=== PATIENT | female | born 1965 ===

== ENCOUNTER 2016-12-16 21:01 | Emergency (ER) | payer MEDICAID ==
[2016-12-16 21:12] VITALS: RESP 18
--- NOTE | 2016-12-16 21:18 | C.PDOC ---
History Of Present Illness Patient presents to the ER with a complaint of sudden left flank pain that radiate to the left groin. Denies fever, chills, nausea, or vomiting. Time Seen by Provider: 12/16/16 21:18 Chief Complaint (Nursing): Female Genitourinary History Per: Patient History/Exam Limitations: no limitations Onset/Duration Of Symptoms: Hrs Severity: Severe Pain Scale Rating Of: 7 Location Of Pain/Discomfort: Other (Left flank) Radiation Of Pain To:: Other (Groin) Quality Of Discomfort: Unable To Describe Associated Symptoms: denies: Fever, Chills, Nausea, Vomiting Exacerbating Factors: None Alleviating Factors: None Recent travel outside of the [place]: No Abnormal Vaginal Bleeding: No Past Medical History Reviewed: Historical Data, Nursing Documentation, Vital Signs Vital Signs: Last Vital Signs Temp 98.9 F 12/16/16 21:09 Pulse 82 12/16/16 21:09 Resp 18 12/16/16 21:09 BP 190/99 H 12/16/16 21:15 Pulse Ox 98 12/16/16 21:27 - Medical History PMH: Asthma, HTN Surgical History: No Surg Hx - [facility] Procedures NEBULIZER THERAPY (02/15/14) Family History: States: No Known Family Hx - Social History Hx Alcohol Use: No Hx Substance Use: No Review Of Systems Constitutional: Negative for: Fever, Chills Gastrointestinal: Negative for: Nausea, Vomiting Musculoskeletal: Positive for: Back Pain Physical Exam - Physical Exam Appears: Non-toxic Skin: Warm, Dry Oral Mucosa: Moist Chest: Symmetrical, No Tenderness Cardiovascular: Rhythm Regular, No Murmur Respiratory: No Rales, No Rhonchi, No Wheezing Gastrointestinal/Abdominal: Soft, No Tenderness Back: Paraspinal Tenderness (Left flank) Neurological/Psych: Oriented x3 ED Course And Treatment - Laboratory Results Result Diagrams: 12/16/16 21:38 12/16/16 21:38 O2 Sat by Pulse Oximetry: 98 (Room air) Pulse Ox Interpretation: Normal Progress Note: Blood work and urinalysis ordered. Pepcid, toradol, zofran, morphine, and IV fluids administered. Reevaluation Time: 00:03 Reassessment Condition: Improved Medical Decision Making Medical Decision Making: Upon provider reevaluation patient is feeling better, is medically stable, and requires no further treatment in the ED at this time. Patient will be discharged home with Rx for flomax, macrobid, toradol . Counseling was provided and all questions were answered regarding diagnosis and need for follow up with the referred clinic. There is agreement to discharge plan. Return if symptoms persist or worsen. Disposition Counseled Patient/Family Regarding: Studies Performed, Diagnosis, Need For Followup, Rx Given - Disposition Referrals: Felix Jeffers MD [Primary Care Provider] - Antoinette Mock MD [Staff Provider] - Disposition: HOME/ ROUTINE Disposition Time: 21:18 Condition: FAIR Additional Instructions: please return if symptoms recur Prescriptions: Ketorolac Tromethamine [Toradol] 10 mg PO TID PRN #15 tab PRN Reason: Pain, Moderate (4-7) Nitrofurantoin Macrocrystals [Macrobid] 1 cap PO BID #14 cap Tamsulosin [Flomax] 0.4 mg PO DAILY #14 cap Instructions: Renal Colic (ED), Kidney Stones (DC), Urinary Tract Infection in Women (DC) Forms: [employer] (Latvian) Print Language: HEBREW - Clinical Impression Clinical Impression: Renal colic on left side, Kidney stone on left side, Hydroureteronephrosis, UTI (urinary tract infection) - Scribe Statement The provider has reviewed the documentation as recorded by the Scribruma Nuno All medical record entries made by the Scribe were at my direction and personally dictated by me. I have reviewed the chart and agree that the record accurately reflects my personal performance of the history, physical exam, medical decision making, and the department course for this patient. I have also personally directed, reviewed, and agree with the discharge instructions and disposition.
[2016-12-16] MEDS ORDERED: Sodium Chloride 0.9% 2,000 ML IV ONE (21:19)
[2016-12-16] MEDS ORDERED: Sodium Chloride 0.9% 1,000 ML ONE (21:27)
[2016-12-16] MEDS ORDERED: Morphine 4 MG/ML VIAL ONE (21:27)
[2016-12-16 21:48] LABS: BASO # 0.1 K/uL (0.0-0.2); BASO % 0.8 % (0.0-2.0); EOS # 0.2 K/uL (0.0-0.7); EOS % 3.3 % (0.0-4.0); HEMOGLOBIN 13.3 g/dL (11.0-16.0); LYMPH # 1.9 K/uL (1.0-4.3); LYMPH % 29.4 % (20.0-40.0); MEAN CELL VOLUME 91.7 fL (81.0-99.0); MEAN CORPUSCULAR HEMOGLOBIN 30.8 pg (27.0-31.0); MEAN CORPUSCULAR HGB CONC 33.6 g/dL (33.0-37.0); MONO # 0.6 K/uL (0.0-0.8); MONO % 8.7 % (0.0-10.0); NEUT # 3.7 K/uL (1.8-7.0); NEUT % 57.8 % (50.0-75.0); RBC 4.32 Mil/uL (3.80-5.20); WHITE BLOOD COUNT 6.5 K/uL (4.8-10.8)
[2016-12-16 21:55] LABS: ALBUMIN 4.1 g/dL (3.5-5.0)
[2016-12-16 21:58] LABS: ALB/GLOB RATIO 1.2 (1.0-2.1)
[2016-12-16 21:59] LABS: CALCIUM 9.1 mg/dl (8.6-10.4)
[2016-12-16 22:13] LABS: SQUAMOUS EPITHIAL 7 /hpf (0-5); URINE BACTERIA OCC (<OCC); URINE BILIRUBIN NEGATIVE (NEGATIVE); URINE BLOOD 3+ (NEGATIVE); URINE CLARITY Hazy (Clear); URINE COLOR Yellow (YELLOW); URINE GLUCOSE (UA) NORMAL (Normal); URINE LEUKOCYTE ESTERASE TRACE Leu/uL (Negative); URINE NITRATE NEGATIVE (NEGATIVE); URINE PROTEIN 1+ mg/dL (NEGATIVE); URINE UROBILINOGEN NORMAL mg/dL (0.2-1.0)
[2016-12-16 22:14] LABS: HCG,QUALITATIVE URINE NEGATIVE (NEGATIVE)
[2016-12-16] MEDS ORDERED: cefTRIAXone IV 1 gm in Dextros 50 ML IVPB ONE (22:27)
--- NOTE | 2016-12-16 23:10 | CT ---
EXAM: CT Abdomen and Pelvis Without Intravenous Contrast CLINICAL HISTORY: 51 years old, female; Pain; Abdominal pain; Flank; Left lower quadrant (llq); Additional info: Left flank pain, HX of kidney stone TECHNIQUE: Axial computed tomography images of the abdomen and pelvis without intravenous contrast. This CT exam was performed using one or more of the following dose reduction techniques: automated exposure control, adjustment of the mA and/or kV according to patient size, and/or use of iterative reconstruction technique. Coronal and sagittal reformatted images were created and reviewed. COMPARISON: No relevant prior studies available. FINDINGS: Lower thorax: Minimal atelectasis/scarring. ABDOMEN: Liver: Unremarkable. Gallbladder and bile ducts: Cholecystectomy. No ductal dilation. Pancreas: Unremarkable. No ductal dilation. Spleen: No splenomegaly. Adrenals: No mass. Kidneys and ureters: Moderate scarring/atrophy of RIGHT kidney. Several small renal calculi. Mild pelvocaliectasis of LEFT kidney. Two calculi at/near LEFT ureterovesical junction, larger measuring 0.5 x 0.2 x 0.2 cm. Stomach and bowel: No definite mural thickening. No obstruction. Appendix: No findings to suggest acute appendicitis. PELVIS: Bladder: Unremarkable. No stones. Reproductive: Unremarkable as visualized. ABDOMEN and PELVIS: Intraperitoneal space: No significant fluid collection. No free air. Bones/joints: Degenerative changes of spine. No acute fracture. Soft tissues: Tiny umbilical hernia containing fat. Vasculature: Unremarkable. No aneurysm. Lymph nodes: No pathologically enlarged lymph nodes. IMPRESSION: 1. LEFT distal ureteral calculi with mild hydroureteronephrosis. 2. Incidental/non-acute findings are described above.
[2016-12-17 00:03] VITALS: BP 125/77; PULSE 69; TEMP 97.7
[2016-12-17 00:06] VITALS: O2SAT 98
== END 2016-12-17 00:14 | disposition home or self-care (01) ==
LOC: SUPCPDRO 21:01 → C.ER 21:01
DX: N13.2 Hydronephrosis with renal and ureteral calculous obstruction (principal); N39.0 Urinary tract infection, site not specified
CPT/HCPCS: 74176; 80053; 81001; 83690; 84703; 85025; 96365; 96375; 99284; J0696; J1885; J2270; J2405; J7040

== ENCOUNTER 2017-01-13 21:12 | Inpatient (IN) | payer MEDICAID ==
[2017-01-13] MEDS ORDERED: Sodium Chloride 0.9% 1,000 ML IV ONE (21:33)
[2017-01-13 21:50] LABS: RBC URINE 7 /hpf (0-3); TRANSITIONAL EPITHIAL < 1 /hpf (0-3); URINE BACTERIA RARE (<OCC); URINE BILIRUBIN NEGATIVE (NEGATIVE); URINE BLOOD 1+ (NEGATIVE); URINE COLOR Yellow (YELLOW); URINE GLUCOSE (UA) NORMAL (Normal); URINE KETONE 1+ mg/dL (NEGATIVE); URINE LEUKOCYTE ESTERASE NEG Leu/uL (Negative); URINE PROTEIN 1+ mg/dL (NEGATIVE); URINE UROBILINOGEN NORMAL mg/dL (0.2-1.0); WBC URINE 2 /hpf (0-5)
[2017-01-13] MEDS ORDERED: Sodium Chloride 0.9% 1,000 ML ONE (21:52)
[2017-01-13] MEDS ORDERED: Morphine 4 MG/ML VIAL ONE (21:52)
[2017-01-13 21:53] LABS: BASO % 0.1 % (0.0-2.0); EOS % 0.1 % (0.0-4.0); HEMATOCRIT 40.9 % (34.0-47.0); LYMPH # 0.7 K/uL (1.0-4.3); LYMPH % 4.2 % (20.0-40.0); MEAN CELL VOLUME 90.8 fL (81.0-99.0); MEAN CORPUSCULAR HEMOGLOBIN 30.6 pg (27.0-31.0); MEAN CORPUSCULAR HGB CONC 33.8 g/dL (33.0-37.0); MEAN PLATELET VOLUME 8.9 fL (7.2-11.7); MONO # 1.1 K/uL (0.0-0.8); MONO % 6.9 % (0.0-10.0); PLATELET COUNT 156 K/uL (130-400); RED CELL DISTRIBUTION WIDTH 13.3 % (11.5-14.5); WHITE BLOOD COUNT 15.8 K/uL (4.8-10.8)
[2017-01-13 22:05] LABS: CHLORIDE 105 mmol/L (98-107); POTASSIUM 4.1 mmol/L (3.6-5.2); SODIUM 137 mmol/L (132-148)
[2017-01-13 22:07] LABS: GFR AFRICAN-AMERICAN > 60
[2017-01-13 22:08] LABS: ALB/GLOB RATIO 1.2 (1.0-2.1); ALKALINE PHOSPHATASE 92 U/L (38-126); ALT/SGPT 53 U/L (9-52); AST/SGOT 35 U/L (14-36); BILIRUBIN,TOTAL 1.7 mg/dL (0.2-1.3); BLOOD UREA NITROGEN 11 mg/dL (7-17); CALCIUM 9.3 mg/dl (8.6-10.4); CARBON DIOXIDE 22 mmol/L (22-30); GLUCOSE,RANDOM 135 mg/dL (65-105); TOTAL PROTEIN 7.7 g/dL (6.3-8.3)
[2017-01-13 22:58] LABS: NEUTROPHIL 88 % (50-75); TOTAL CELLS COUNTED 100
[2017-01-13] MEDS ORDERED: Iodixanol 320 MG/ML 100 ML BOTTLE IV ONE (23:14)
--- NOTE | 2017-01-13 23:19 | C.PDOC ---
History Of Present Illness 51 year old female who presents to the ER with a complaint of worsening periumbilical pain for the past 2 days. Denies nausea, vomiting, fever, or chills. Time Seen by Provider: 01/13/17 21:30 Chief Complaint (Nursing): Abdominal Pain History Per: Patient History/Exam Limitations: no limitations Onset/Duration Of Symptoms: Days Current Symptoms Are (Timing): Still Present Location Of Pain/Discomfort: Periumbilical Radiation Of Pain To:: None Quality Of Discomfort: Unable To Describe Associated Symptoms: denies: Fever, Chills, Nausea, Vomiting Exacerbating Factors: None Alleviating Factors: None Recent travel outside of the [place]: No Abnormal Vaginal Bleeding: No Past Medical History Reviewed: Historical Data, Nursing Documentation, Vital Signs Vital Signs: Last Vital Signs Temp 99.0 F 01/13/17 21:18 Pulse 86 01/13/17 21:18 Resp 16 01/13/17 21:18 BP 118/71 01/13/17 21:18 Pulse Ox 98 01/14/17 00:14 - Medical History PMH: Asthma, HTN Surgical History: Cholecystectomy - [facility] Procedures NEBULIZER THERAPY (02/15/14) Family History: States: Unknown Family Hx - Social History Hx Alcohol Use: No Hx Substance Use: No - Immunization History Hx Tetanus Toxoid Vaccination: No Hx Influenza Vaccination: Yes Hx Pneumococcal Vaccination: No Review Of Systems Constitutional: Negative for: Fever, Chills Gastrointestinal: Positive for: Abdominal Pain. Negative for: Nausea, Vomiting Genitourinary: Negative for: Dysuria, Hematuria Physical Exam - Physical Exam Appears: Non-toxic Skin: Normal Color, Warm, Dry Head: Atraumatic, Normacephalic Oral Mucosa: Moist Chest: Symmetrical, No Tenderness Cardiovascular: Rhythm Regular, No Murmur Respiratory: Normal Breath Sounds, No Rales, No Rhonchi, No Wheezing Gastrointestinal/Abdominal: Soft, Tenderness (Periumbilical), Other (Positive mcburney's sign) Neurological/Psych: Oriented x3, Normal Speech, Normal Cognition ED Course And Treatment - Laboratory Results Result Diagrams: 01/13/17 21:49 01/13/17 21:49 Lab Interpretation: Abnormal ECG: Interpreted By Nm ECG Rhythm: Sinus Rhythm ECG Interpretation: Normal Rate From EC O2 Sat by Pulse Oximetry: 98 Pulse Ox Interpretation: Normal - Radiology CXR: Interpreted by Me CXR Interpretation: Yes: No Acute Disease - Other Rad abd x 2 X-Ray: Interpreted by Me (normal stool/gas) - CT Scan/US CT Abd/Pelvis Other Rad Studies (CT/US): Radiology Report Reviewed (+ acute Appendicitis) Progress Note: EKG, CT abd/pel, and abdominal x-ray ordered. Toradol, morphine, zosyn, and IV fluids administered. Reevaluation Time: 00:06 Reassessment Condition: Improved - Physician Consult Information Outcome Of Conversation: 0000: d/w Dr. Richardson- Surgery Help Desk Manager- ok to admit. discussed with Surg Kevan Disposition Doctor Will See Patient In The: Hospital Counseled Patient/Family Regarding: Studies Performed, Diagnosis - Disposition Disposition: HOSPITALIZED Disposition Time: 00:06 Condition: GOOD Forms: [facility] (Khmer) - Clinical Impression Clinical Impression: Appendicitis, acute - Scribe Statement The provider has reviewed the documentation as recorded by the Scribruma Nuno All medical record entries made by the Scribe were at my direction and personally dictated by me. I have reviewed the chart and agree that the record accurately reflects my personal performance of the history, physical exam, medical decision making, and the department course for this patient. I have also personally directed, reviewed, and agree with the discharge instructions and disposition.
--- NOTE | 2017-01-13 23:52 | CT ---
EXAM: CT Abdomen and Pelvis With Intravenous Contrast CLINICAL HISTORY: 51 years old, female; Pain; Abdominal pain; Periumbilical; Patient HX: Pelvic pain also; Additional info: Periumbilical pain, h/o renal colic, + leukocytosi TECHNIQUE: Axial computed tomography images of the abdomen and pelvis with intravenous contrast. All CT scans at this facility use one or more dose reduction techniques, viz.: automated exposure control; ma/kV adjustment per patient size (including targeted exams where dose is matched to indication; i.e. head); or iterative reconstruction technique. Coronal and sagittal reformatted images were created and reviewed. CONTRAST: 100 mL of visipaque administered intravenously. COMPARISON: CT - ABD PELVIS W/O PO OR IV CONT 12/16/2016 10:33:50 PM FINDINGS: Lower thorax: Minimal atelectasis/scarring. ABDOMEN: Liver: Unremarkable. No mass. Gallbladder and bile ducts: Cholecystectomy. No ductal dilation. Pancreas: No ductal dilation. No mass. Spleen: No splenomegaly. Adrenals: No mass. Kidneys and ureters: Moderate scarring/atrophy of RIGHT kidney. Several small renal calculi. No hydronephrosis. Stomach and bowel: No definite mural thickening. No obstruction. Appendix: Enlarged appendix, measuring up to 1.3 cm in diameter. Mild stranding about appendix. Appendicolith. PELVIS: Bladder: Unremarkable. Reproductive: Unremarkable as visualized. ABDOMEN and PELVIS: Intraperitoneal space: Trace free fluid within lower abdomen. No free air. Bones/joints: Degenerative changes of spine. No acute fracture. Soft tissues: Tiny umbilical hernia containing fat. Tiny RIGHT inguinal hernia containing fat. Vasculature: Unremarkable. No aneurysm. Lymph nodes: No pathologically enlarged lymph nodes. IMPRESSION: 1. Acute appendicitis. 2. Incidental/non-acute findings are described above.
[2017-01-13] MEDS ORDERED: Piperacillin/Tazobact 3.375 gm 100 ML IV STA (23:58)
[2017-01-13] MEDS ORDERED: Morphine 4 MG/ML VIAL IV STA (23:59)
[2017-01-14] MEDS ORDERED: Morphine 4 MG/ML VIAL ONE (00:02)
[2017-01-14] MEDS ORDERED: HYDROmorphone 0.5 mg/0.5 ml ISec IVP PRN ×2 (00:57→10:00)
[2017-01-14] MEDS ORDERED: Sodium Chloride 0.9% 1,000 ML IV SCH (01:00)
--- NOTE | 2017-01-14 01:35 | CP.PCM.HP ---
History of Present Illness - History of Present Illness History of Present Illness: H&P- Dr. Richardson CC: Abdominal Pain 51F pmhx of HTN and depression started having worsening sharp periumbilical pain now in the RLQ that started 2 days ago. Pain is now localized the the RLQ. Associated nausea, NBNB vomiting, and non-bloody diarrhea. Pt also states subjective fevers and chills. Denies current chest pain, SOB, numbness or tingling in the extremities. No episodes of similar pain previously PMH: Asthma, HTN, Depression PSH: none ALL: NKDA SocialHx: Former smoker Present on Admission - Present on Admission Any Indicators Present on Admission: No Review of Systems - Review of Systems All systems: reviewed and no additional remarkable complaints except Review of Systems: as noted above Past Patient History - Infectious Disease Hx of Infectious Diseases: None - Tetanus Immunizations Tetanus Immunization: Unknown - Past Medical History & Family History Past Medical History?: Yes - Past Social History Smoking Status: Former Smoker - CARDIAC Hx Hypertension: Yes - PULMONARY Hx Asthma: Yes - NEUROLOGICAL Hx Seizures: No - HEMATOLOGICAL/ONCOLOGICAL Hx Human Immunodeficiency Virus (HIV): No - GENITOURINARY/GYNECOLOGICAL Hx Sexually Transmitted Disorders: No - PSYCHIATRIC Hx Substance Use: No - SURGICAL HISTORY Hx Cholecystectomy: Yes - ANESTHESIA Hx Anesthesia: Yes Hx Anesthesia Reactions: No Meds Allergies/Adverse Reactions: Allergies Allergy/AdvReac Type Severity Reaction Status Date / Time chocolate flavor Allergy RASH Verified 01/13/17 21:21 Physical Exam - Constitutional Appears: No Acute Distress - Head Exam Head Exam: ATRAUMATIC - Eye Exam Eye Exam: EOMI - ENT Exam ENT Exam: Mucous Membranes Moist - Respiratory Exam Respiratory Exam: NORMAL BREATHING PATTERN. absent: Accessory Muscle Use, Rales , Rhonchi - Cardiovascular Exam Cardiovascular Exam: REGULAR RHYTHM, +S1, +S2 - GI/Abdominal Exam GI & Abdominal Exam: Guarding, Normal Bowel Sounds, Soft, Tenderness. absent: Firm, Mass Additional comments: TTP- +rovsings +mcburney +obturator sign - Extremities Exam Additional comments: +2 pulses DP B/L - Neurological Exam Neurological exam: Alert, Oriented x3 - Psychiatric Exam Psychiatric exam: Normal Affect - Skin Skin Exam: Intact, Normal Color Results - Vital Signs Recent Vital Signs: Last Vital Signs Temp 98.5 F 01/14/17 01:22 Pulse 76 01/14/17 01:22 Resp 20 01/14/17 01:22 BP 146/83 01/14/17 01:22 Pulse Ox 97 01/14/17 01:22 - Labs Result Diagrams: 01/13/17 21:49 01/13/17 21:49 Assessment & Plan - Assessment and Plan (Free Text) Assessment: 51F RLQ abdominal pain Plan: - NPO - IVF/Abx - GI/DVT Ppx - Repeat AM labs - pain control - schedule for OR- Lap Appy - further recs per Dr. Dylan Henderson PGY1
[2017-01-14] MEDS: Piperacill/Tazo 3.375gm in Dex 3.375 GM/50 ML BAG IVPB SCH ×4 (05:53→23:36)
[2017-01-14 06:29] LABS: BASO % 0.1 % (0.0-2.0); HEMATOCRIT 38.1 % (34.0-47.0); LYMPH # 0.9 K/uL (1.0-4.3); LYMPH % 5.4 % (20.0-40.0); MEAN CELL VOLUME 91.4 fL (81.0-99.0); MEAN CORPUSCULAR HGB CONC 32.9 g/dL (33.0-37.0); MEAN PLATELET VOLUME 8.9 fL (7.2-11.7); MONO # 1.2 K/uL (0.0-0.8); MONO % 6.8 % (0.0-10.0); PLATELET COUNT 151 K/uL (130-400); RED CELL DISTRIBUTION WIDTH 13.3 % (11.5-14.5)
[2017-01-14 06:56] LABS: BLOOD UREA NITROGEN 10 mg/dL (7-17); CALCIUM 8.9 mg/dl (8.6-10.4); CARBON DIOXIDE 25 mmol/L (22-30); CHLORIDE 103 mmol/L (98-107); GFR AFRICAN-AMERICAN > 60; GLUCOSE,RANDOM 117 mg/dL (65-105); POTASSIUM 4.1 mmol/L (3.6-5.2); SODIUM 138 mmol/L (132-148)
[2017-01-14] MEDS ORDERED: Lactated Ringer's 1,000 ML IV ONE ×2 (08:16)
[2017-01-14] MEDS ORDERED: Propofol 10 mg/ml Inj (20 ML) ONE (08:47)
[2017-01-14] MEDS ORDERED: Neostigmine Methylsulfate 3mg/3ml Syringe IV ONE (09:21)
[2017-01-14] MEDS ORDERED: Oxycodone/Acetaminophen 5/325 mg Tab PO PRN (10:03)
--- NOTE | 2017-01-14 10:07 | PCM.SURG1 ---
Surgeon's Initial Post Op Note - Surgeon's Notes Surgeon: Dr. Richardson Blade Groover: PGY1, [facility] OMS4 Pre-Operative Diagnosis: Acute Appendicitis Operative Findings: see op note Post-Operative Diagnosis: Same Operation Performed: Laparoscopic Appendectomy Specimen/Specimens Removed: inflammed appendix Estimated Blood Loss: EBL {In ML}: 10 Drains Used: No Drains Post-Op Condition: Good Date of Surgery/Procedure: 01/14/17 Time of Surgery/Procedure: 09:00
[2017-01-14] MEDS ORDERED: Sodium Chloride 0.9% 250 ML IV ONE ×2 (11:05→11:30)
--- NOTE | 2017-01-14 11:39 | RAD ---
PROCEDURE: Radiographs of the chest and abdomen (obstructive series) HISTORY: abd pain COMPARISON: No prior. TECHNIQUE: AP radiograph of the chest, with upright and supine radiographs of the abdomen. FINDINGS: CHEST: Lungs: Clear. Cardiovascular: Normal size heart. No pulmonary vascular congestion. Pleura: No pleural fluid. No pneumothorax. Other findings: None. ABDOMEN AND PELVIS: Bowel: Unremarkable bowel gas pattern. No evidence of mechanical obstruction. Free air: None. Bones: Unremarkable. Other findings: Surgical clips in the right upper quadrant abdomen suggesting prior cholecystectomy. Clinically correlate. IMPRESSION: Unremarkable radiographs of chest and abdomen. No evidence of mechanical bowel obstruction. Prior cholecystectomy suggested. Clinically correlate further.
[2017-01-14 11:54] LABS: NEUTROPHIL 80 % (50-75); TOTAL CELLS COUNTED 100
[2017-01-14 14:52] VITALS: RESP 20
[2017-01-14] MEDS: Sodium Chloride 0.9% 1,000 ML IV SCH ×2 (18:35→20:50)
--- NOTE | 2017-01-14 21:35 | OP ---
PROCEDURE DATE: 01/14/2017 PREOPERATIVE DIAGNOSIS: Acute appendicitis. POSTOPERATIVE DIAGNOSIS: Acute appendicitis. PROCEDURE: Laparoscopic appendectomy. SURGEON: Dr. Richardson. SKILLS INSTRUCTOR: Dr. Henderson. ANESTHESIA: General. ANESTHESIOLOGIST: Dr. Dr. Lopes. DESCRIPTION OF OPERATION: With the patient in the supine position under adequate general anesthesia, the abdomen was prepped and draped in the usual sterile manner. Veress needle puncture was performed at the umbilicus with insufflation to 15 cm of water pressure CO2 and a 10 mm laparoscopic trocar was inserted via an infraumbilical incision. Under direct vision, 5 and 12 mm trocars were inserted in the left lower quadrant. The appendix was identified was identified as an inflammatory mass adherent to the anterior aspect of the abdominal wall in the right lower quadrant. The mass was taken down to reveal an acutely inflamed appendix with overlying omental and epiploic fat. The distal portion of the appendix was markedly inflamed and dilated with some purulent exudate. The base of the appendix was relatively normal in appearance. The mesoappendix was dissected and thoroughly divided with the hemoclip and an Endo DANICA stapler was then used to amputate the appendix close to the cecum. The stump was examined for hemostasis. The appendix was placed in a specimen retrieval bag and removed via the 12 mm port site. There was a large appendicle is palpable within the appendix. The right lower quadrant was irrigated and suctioned. The pneumoperitoneum was released and the trocars were removed. The umbilical and 12 mm port sites were closed with figure-of-8 fascial sutures of 0-Vicryl. All incisions were closed with 4-0 Monocryl subcuticular sutures and Steri-Strips. Dry sterile dressings were applied. The patient tolerated the procedure well and transferred to the recovery room in stable condition. ESTIMATED BLOOD LOSS: From the procedure was 20 mL. Ana Paula Richardson MD
[2017-01-15] MEDS: Piperacill/Tazo 3.375gm in Dex 3.375 GM/50 ML BAG IVPB SCH ×2 (05:24→11:54)
[2017-01-15] MEDS ORDERED: Benzocaine/Menthol (Cepacol) Lozenge MT PRN (05:30)
[2017-01-15] MEDS: Sodium Chloride 0.9% 1,000 ML IV SCH (05:41)
[2017-01-15 08:28] LABS: BASO % 0.6 % (0.0-2.0); EOS # 0.2 K/uL (0.0-0.7); EOS % 2.8 % (0.0-4.0); HEMATOCRIT 33.6 % (34.0-47.0); LYMPH # 1.4 K/uL (1.0-4.3); LYMPH % 16.2 % (20.0-40.0); MEAN CELL VOLUME 92.2 fL (81.0-99.0); MEAN CORPUSCULAR HEMOGLOBIN 30.6 pg (27.0-31.0); MEAN CORPUSCULAR HGB CONC 33.3 g/dL (33.0-37.0); MEAN PLATELET VOLUME 8.9 fL (7.2-11.7); MONO # 0.5 K/uL (0.0-0.8); MONO % 5.2 % (0.0-10.0); RED CELL DISTRIBUTION WIDTH 13.6 % (11.5-14.5); WHITE BLOOD COUNT 8.7 K/uL (4.8-10.8)
[2017-01-15 08:37] VITALS: BP 120/79; PULSE 60; TEMP 98.1; O2SAT 96
[2017-01-15 08:54] LABS: ALKALINE PHOSPHATASE 62 U/L (38-126); ALT/SGPT 37 U/L (9-52); AST/SGOT 19 U/L (14-36); BILIRUBIN,TOTAL 1.6 mg/dL (0.2-1.3); BLOOD UREA NITROGEN 10 mg/dL (7-17); CALCIUM 8.6 mg/dl (8.6-10.4); CARBON DIOXIDE 25 mmol/L (22-30); CHLORIDE 105 mmol/L (98-107); GFR AFRICAN-AMERICAN > 60; GLUCOSE,RANDOM 90 mg/dL (65-105); POTASSIUM 3.8 mmol/L (3.6-5.2); SODIUM 139 mmol/L (132-148); TOTAL PROTEIN 5.7 g/dL (6.3-8.3)
--- NOTE | 2017-01-15 11:11 | CP.PCM.DIS ---
Provider - Provider Date of Admission: 01/14/17 00:04 Attending physician: Ana Paula Richardson MD Time Spent in preparation of Discharge (in minutes): 5 Hospital Course - Lab Results Lab Results: Most Recent Lab Values WBC 8.7 K/uL (4.8-10.8) 01/15/17 08:21 RBC 3.65 Mil/uL (3.80-5.20) L 01/15/17 08:21 Hgb 11.2 g/dL (11.0-16.0) 01/15/17 08:21 Hct 33.6 % (34.0-47.0) L 01/15/17 08:21 MCV 92.2 fL (81.0-99.0) 01/15/17 08:21 MCH 30.6 pg (27.0-31.0) 01/15/17 08:21 MCHC 33.3 g/dL (33.0-37.0) 01/15/17 08:21 RDW 13.6 % (11.5-14.5) 01/15/17 08:21 Plt Count 143 K/uL (130-400) 01/15/17 08:21 MPV 8.9 fL (7.2-11.7) 01/15/17 08:21 Neut % (Auto) 75.2 % (50.0-75.0) H 01/15/17 08:21 Lymph % (Auto) 16.2 % (20.0-40.0) L 01/15/17 08:21 Evans % (Auto) 5.2 % (0.0-10.0) 01/15/17 08:21 Eos % (Auto) 2.8 % (0.0-4.0) 01/15/17 08:21 Baso % (Auto) 0.6 % (0.0-2.0) 01/15/17 08:21 Neut # 6.6 K/uL (1.8-7.0) 01/15/17 08:21 Lymph # 1.4 K/uL (1.0-4.3) 01/15/17 08:21 Evans # 0.5 K/uL (0.0-0.8) 01/15/17 08:21 Eos # 0.2 K/uL (0.0-0.7) 01/15/17 08:21 Baso # 0.0 K/uL (0.0-0.2) 01/15/17 08:21 Neutrophils % (Manual) 80 % (50-75) H 01/14/17 06:22 Band Neutrophils % 5 % (0-2) H 01/14/17 06:22 Lymphocytes % (Manual) 9 % (20-40) L 01/14/17 06:22 Monocytes % (Manual) 6 % (0-10) 01/14/17 06:22 Platelet Estimate Normal (NORMAL) 01/14/17 06:22 RBC Morphology Normal 01/14/17 06:22 Sodium 139 mmol/L (132-148) 01/15/17 08:21 Potassium 3.8 mmol/L (3.6-5.2) 01/15/17 08:21 Chloride 105 mmol/L (98-107) 01/15/17 08:21 Carbon Dioxide 25 mmol/L (22-30) 01/15/17 08:21 Anion Gap 13 (10-20) 01/15/17 08:21 BUN 10 mg/dL (7-17) 01/15/17 08:21 Creatinine 0.8 MG/DL (0.7-1.2) 01/15/17 08:21 Est GFR ( Amer) > 60 01/15/17 08:21 Est GFR (Non-Af Amer) > 60 01/15/17 08:21 Random Glucose 90 mg/dL (65-105) 01/15/17 08:21 Calcium 8.6 mg/dl (8.6-10.4) 01/15/17 08:21 Total Bilirubin 1.6 mg/dL (0.2-1.3) H 01/15/17 08:21 AST 19 U/L (14-36) 01/15/17 08:21 ALT 37 U/L (9-52) 01/15/17 08:21 Alkaline Phosphatase 62 U/L (38-126) 01/15/17 08:21 Total Protein 5.7 g/dL (6.3-8.3) L 01/15/17 08:21 Albumin 2.9 g/dL (3.5-5.0) L D 01/15/17 08:21 Globulin 2.9 gm/dL (2.2-3.9) 01/15/17 08:21 Albumin/Globulin Ratio 1.0 (1.0-2.1) 01/15/17 08:21 Lipase 37 U/L (23-300) 01/13/17 21:49 Urine Color Yellow (YELLOW) 01/13/17 21:33 Urine Clarity Hazy (Clear) 01/13/17 21:33 Urine pH 5.0 (5.0-8.0) 01/13/17 21:33 Ur Specific [place] 1.024 (1.003-1.030) 01/13/17 21:33 Urine Protein 1+ mg/dL (NEGATIVE) H 01/13/17 21:33 Urine Glucose (UA) Normal mg/dL (Normal) 01/13/17 21:33 Urine Ketones 1+ mg/dL (NEGATIVE) H 01/13/17 21:33 Urine Blood 1+ (NEGATIVE) H 01/13/17 21:33 Urine Nitrate Negative (NEGATIVE) 01/13/17 21:33 Urine Bilirubin Negative (NEGATIVE) 01/13/17 21:33 Urine Urobilinogen Normal mg/dL (0.2-1.0) 01/13/17 21:33 Ur Leukocyte Esterase Neg Susana/uL (Negative) 01/13/17 21:33 Urine WBC (Auto) 2 /hpf (0-5) 01/13/17 21:33 Urine RBC (Auto) 7 /hpf (0-3) H 01/13/17 21:33 Ur Squamous Epith Cells 7 /hpf (0-5) H 01/13/17 21:33 Ur Transition Epith Cell < 1 /hpf (0-3) 01/13/17 21:33 Urine Bacteria Rare (<OCC) 01/13/17 21:33 Urine HCG, Qual Negative (NEGATIVE) 01/13/17 21:33 - Hospital Course Hospital Course: 51F admitted on 01/13/17 for acute appendicitis. Taken to OR for laparoscopic appendectomy, tolerated well. D/C on 01/15 tolerating regular diet, ambulating, pain well controlled. Follow up in 1 week Discharge Exam - Head Exam Head Exam: ATRAUMATIC - Respiratory Exam Respiratory Exam: absent: Accessory Muscle Use, Respiratory Distress - Cardiovascular Exam Cardiovascular Exam: REGULAR RHYTHM - GI/Abdominal Exam GI & Abdominal Exam: Soft. absent: Diminished Bowel Sounds, Distended, Firm Additional comments: incisions c/d/i - Psychiatric Exam Psychiatric exam: Normal Affect, Normal Mood - Skin Skin Exam: Normal Color, Warm Discharge Plan - Follow Up Plan Condition: GOOD Disposition: HOME/ ROUTINE
--- NOTE | 2017-01-27 20:34 | CARD ---
APPROVED REPORT EKG Measurement Heart [id number] <Conclusion> Normal sinus rhythm Nonspecific T wave abnormality Abnormal ECG
== END 2017-01-15 14:00 | disposition home or self-care (01) | DRG 883 ==
LOC: C.ER 21:12 → C.6T 01-14 00:04
PROVIDERS: ADMIT Specialist; ATTEND Specialist
PROC: 0DTJ4ZZ Resection of Appendix, Percutaneous Endoscopic Approach (ICD-10-PCS; principal; 2017-01-14 08:30)
DX: K35.80 Unspecified acute appendicitis (principal); I10 Essential (primary) hypertension; J45.909 Unspecified asthma, uncomplicated; F17.210 Nicotine dependence, cigarettes, uncomplicated; F32.9 Major depressive disorder, single episode, unspecified

== ENCOUNTER 2017-01-28 17:19 | Emergency (ER) | payer MEDICAID ==
[2017-01-28 17:49] VITALS: TEMP 98
[2017-01-28] MEDS ORDERED: Sodium Chloride 0.9% 1,000 ML IV ONE (19:40)
[2017-01-28 19:54] LABS: BASO # 0.1 K/uL (0.0-0.2); BASO % 1.1 % (0.0-2.0); EOS # 0.2 K/uL (0.0-0.7); EOS % 4.1 % (0.0-4.0); HEMATOCRIT 41.1 % (34.0-47.0); LYMPH # 1.7 K/uL (1.0-4.3); MEAN CELL VOLUME 91.8 fL (81.0-99.0); MEAN CORPUSCULAR HEMOGLOBIN 30.3 pg (27.0-31.0); MEAN PLATELET VOLUME 8.1 fL (7.2-11.7); MONO # 0.4 K/uL (0.0-0.8); MONO % 7.3 % (0.0-10.0); RED CELL DISTRIBUTION WIDTH 13.8 % (11.5-14.5); WHITE BLOOD COUNT 5.7 K/uL (4.8-10.8)
[2017-01-28 19:54] LABS: RBC URINE 5 /hpf (0-3); URINE BACTERIA RARE (<OCC); URINE BILIRUBIN NEGATIVE (NEGATIVE); URINE BLOOD NEGATIVE (NEGATIVE); URINE COLOR Yellow (YELLOW); URINE GLUCOSE (UA) NORMAL (Normal); URINE KETONE NEGATIVE (NEGATIVE); URINE LEUKOCYTE ESTERASE 2+ Leu/uL (Negative); URINE PROTEIN NEGATIVE (NEGATIVE); URINE UROBILINOGEN NORMAL mg/dL (0.2-1.0); WBC URINE 24 /hpf (0-5)
[2017-01-28 20:04] LABS: ALB/GLOB RATIO 1.1 (1.0-2.1); ALKALINE PHOSPHATASE 75 U/L (38-126); ALT/SGPT 55 U/L (9-52); AST/SGOT 63 U/L (14-36); BILIRUBIN,TOTAL 1.4 mg/dL (0.2-1.3); BLOOD UREA NITROGEN 14 mg/dL (7-17); CALCIUM 9.5 mg/dl (8.6-10.4); CARBON DIOXIDE 22 mmol/L (22-30); CHLORIDE 104 mmol/L (98-107); GFR AFRICAN-AMERICAN > 60; GLUCOSE,RANDOM 86 mg/dL (65-105); SODIUM 140 mmol/L (132-148); TOTAL PROTEIN 7.8 g/dL (6.3-8.3)
[2017-01-28 20:06] LABS: POTASSIUM 5.6 mmol/L (3.6-5.2)
--- NOTE | 2017-01-28 21:20 | C.PDOC ---
Time Seen by Provider: 01/28/17 19:34 Chief Complaint (Nursing): Abdominal Pain History Per: Patient Onset/Duration Of Symptoms: Days (few) Current Symptoms Are (Timing): Still Present Context: Other (s/p appendectomy) Severity: Moderate Location Of Pain/Discomfort: LLQ, Suprapubic Quality Of Discomfort: Unable To Describe, "Pain" Associated Symptoms: Fever (?), Urinary Symptoms (?) Exacerbating Factors: None Alleviating Factors: None Additional History Per: Prior Records Past Medical History Reviewed: Historical Data, Nursing Documentation, Vital Signs Vital Signs: Last Vital Signs Temp 98 F 01/28/17 17:44 Pulse 59 L 01/28/17 17:44 Resp 18 01/28/17 17:44 BP 162/82 H 01/28/17 17:44 Pulse Ox 100 01/28/17 21:23 - Medical History PMH: Asthma, Depression, Gall Bladder Disease (s/p Sx at 26 yo), HTN, Kidney Stones, Chronic Kidney Disease Surgical History: Appendectomy, Cholecystectomy - [facility] Procedures NEBULIZER THERAPY (02/15/14) RESECTION OF APPENDIX, PERCUTANEOUS ENDOSCOPIC APPROACH (01/14/17) Family History: States: Unknown Family Hx - Social History Hx Alcohol Use: Yes Hx Substance Use: No - Immunization History Hx Tetanus Toxoid Vaccination: No Hx Influenza Vaccination: Yes Hx Pneumococcal Vaccination: No Review Of Systems Except As Marked, All Systems Reviewed And Found Negative. Constitutional: Negative for: Weakness Cardiovascular: Negative for: Chest Pain Respiratory: Negative for: Cough, Shortness of Breath Gastrointestinal: Positive for: Abdominal Pain. Negative for: Vomiting, Diarrhea Genitourinary: Positive for: Dysuria (?), Frequency Musculoskeletal: Negative for: Neck Pain Skin: Negative for: Rash Neurological: Negative for: Weakness, Numbness Physical Exam - Physical Exam Appears: Non-toxic, No Acute Distress Skin: Normal Color, Warm, Dry, No Rash Head: Atraumatic, Normacephalic Eye(s): bilateral: Normal Inspection, PERRL, EOMI Neck: Normal ROM, Supple Cardiovascular: Rhythm Regular Respiratory: Normal Breath Sounds, No Accessory Muscle Use Gastrointestinal/Abdominal: Soft, Tenderness (suprapubic) Back: No CVA Tenderness Extremity: Normal ROM Neurological/Psych: Oriented x3, Normal Motor, Normal Sensation ED Course And Treatment - Laboratory Results Result Diagrams: 01/28/17 19:51 01/28/17 19:51 Interpretation Of Abnormal: UTI, urine C&S sent. O2 Sat by Pulse Oximetry: 100 Pulse Ox Interpretation: Normal Progress - Interventions Interventions:: Observation, Intravenous fluid - Medications Administered Intravenous: Antiemetic, H-2 nicanor - Data Reviewed Data Reviewed: Lab, Old records - Patient Status Patient status: Mostly improved - Continuity of Care Discussed patient case with:: Patient, ED Nurse - Patient Plan Patient Plan: Discharge, F/U with PCP Disposition Counseled Patient/Family Regarding: Studies Performed, Diagnosis, Need For Followup, Rx Given - Disposition Referrals: Darrius Jeffers [Staff Provider] - Ana Paula Richardson MD [Staff Provider] - Disposition: HOME/ ROUTINE Disposition Time: 21:23 Condition: IMPROVED Additional Instructions: Drink plenty of fluids. Follow up with your primary doctor and with your surgeon this week. Return to the ER if you develop fever, vomiting, worsening of symptoms or if you have any other concerns. Prescriptions: Ciprofloxacin [Cipro] 1 tab PO BID #14 tab Instructions: Urinary Tract Infection in Women (ED) Forms: [employer] (Citizen Of [place]) Print Language: IRISH - Clinical Impression Clinical Impression: Postoperative UTI (urinary tract infection)
[2017-01-28 21:39] VITALS: BP 132/84; PULSE 78; RESP 16; O2SAT 98
== END 2017-01-28 21:38 | disposition home or self-care (01) ==
LOC: C.ER 17:19
DX: N99.89 Other postprocedural complications and disorders of genitourinary system (principal); Y83.8 Other surgical procedures as the cause of abnormal reaction of the patient, or of later complication, without mention of misadventure at the time of the procedure
CPT/HCPCS: 80053; 81001; 83690; 84703; 85025; 87086; 96361; 96374; 96376; 99283; J2405; J7040